=== PATIENT | male | born 1955 | race Caucasian/White ===

== ENCOUNTER 2021-06-10 10:57 | Outpatient (REF) | payer MEDICARE, SELFPAY | END 2021-06-10 10:58 | disposition home or self-care (01) | LOC: HO.10HDL 10:57 | PROVIDERS: Visit Provider Otolaryngology | DX: B49 Unspecified mycosis (principal) | CPT/HCPCS: 87070; 87102; 87147; 87186; 87205 ==

== ENCOUNTER 2022-09-11 16:00 | Outpatient (REF) | payer MEDICARE, SELFPAY ==
[2022-09-12 12:36] LABS: Influenza A PCR NEGATIVE (Negative); Influenza B PCR NEGATIVE (Negative); Resp Syncy Virus RNA Qual PCR NEGATIVE (Negative); SARS COV2 PCR INHOUSE NEGATIVE (Negative)
== END 2022-09-11 16:01 | disposition home or self-care (01) ==
LOC: HO.LAB 16:00
PROVIDERS: Visit Provider Nurse Practitioner Family
DX: Z20.822 Contact with and (suspected) exposure to COVID-19 (principal); J06.9 Acute upper respiratory infection, unspecified
CPT/HCPCS: 0241U